=== PATIENT | female | born 1945 | race Two or more races ===

== ENCOUNTER 2025-03-20 05:37 | Emergency (ER) | payer OTHER ==
[~2025-03-20] VITALS: Ht 160 cm; Wt 75.7 kg
[~2025-03-20 05:37] MED LIST: ATACAND32 MG; ELIQUIS5 MG PO; GRALISE600 MG; HYDROCHLOROTHIA50 MG PO; NORVASC5 MG PO; TOPROL XL50 M1
[2025-03-20] MEDS ORDERED: ACETAMINOPHEN 500 MG GEL..CAP PO STA (06:59)
== END 2025-03-20 11:08 | disposition home or self-care (01) ==
LOC: ER 05:48
DX: S00.93XA Contusion of unspecified part of head, initial encounter (principal); S40.012A Contusion of left shoulder, initial encounter; W18.39XA Other fall on same level, initial encounter; Y93.89 Activity, other specified; Y92.012 Bathroom of single-family (private) house as the place of occurrence of the external cause; Y99.9 Unspecified external cause status; I10 Essential (primary) hypertension; M51.369 Other intervertebral disc degeneration, lumbar region without mention of lumbar back pain or lower extremity pain; Z88.8 Allergy status to other drugs, medicaments and biological substances; M85.812 Other specified disorders of bone density and structure, left shoulder